=== PATIENT | female | born 1995 | race African-American/Black ===

== ENCOUNTER 2016-09-22 16:23 | Emergency (ER) | payer OTHER ==
[2016-09-22 16:55] VITALS: BP 130/76; PULSE 81; TEMP 98; BMI 22.8
--- NOTE | 2016-09-22 18:32 | PDOC ---
History of Present Illness - General Chief Complaint: Injury Stated Complaint: FALL/LT EYE INJURY Time Seen by Provider: 09/22/16 17:21 History Source: Patient Exam Limitations: No Limitations - History of Present Illness Initial Comments: 09/22/16 18:30 Chief complaint: Fall Patient 21-year-old female with no significant medical problems who states that she slipped, falling injuring her left ribs and slid and hit the left side of her face. No difficulty with vision, no LOC, no nausea or vomiting. GENERAL/CONSTITUTIONAL: No fever, weakness. dizziness HEAD, EYES, EARS, NOSE AND THROAT: No change in vision. + Eyelid swelling, No ear pain or discharge. No sore throat. CARDIOVASCULAR: No chest pain RESPIRATORY: No shortness of breath or cough GASTROINTESTINAL: No pain, nausea, vomiting, diarrhea or constipation GENITOURINARY: No dysuria MUSCULOSKELETAL: No neck or back pain, + rib pain SKIN: No rash NEUROLOGIC: No headache, vertigo, loss of consciousness, or loss of sensation. GENERAL: The patient is awake, alert, and fully oriented, in no acute distress. HEAD: Swelling to the left upper eyelid, no deformity or gross tenderness, otherwise Normal with no signs of trauma. EYES: Pupils equal, round and reactive to light, sclera anicteric, conjunctiva clear. EOMs intact ENT: pharynx: no erythema, no exudate, uvula midline NECK: supple CHEST: clear, left sided rib tenderness, no crepitus or ecchymosis, rr ABD: soft, nontender Back: No tenderness or signs of trauma EXTREMITIES: Normal range of motion, no edema. NEUROLOGICAL: Normal speech, normal gait. Cranial nerves II through XII grossly intact SKIN: Warm, Dry Past History - Past Medical History Allergies/Adverse Reactions: Allergies Allergy/AdvReac Type Severity Reaction Status Date / Time No Known Allergies Allergy Verified 09/22/16 16:56 Home Medications: Ambulatory Orders NK [No Known Home Medication] 04/05/15 Anemia: Yes Asthma: No Cancer: No Cardiac Disorders: No Diabetes: No HTN: No Suicide Attempt (Hx): No Seizures: No Thyroid Disease: No - Psycho/Social/Smoking Cessation Hx Anxiety: No Suicidal Ideation: No Smoking Status: No Smoking History: Never smoked Have you smoked in the past 12 months: No Number of Cigarettes Smoked Daily: 0 Information on smoking cessation initiated: No Hx Alcohol Use: No Drug/Substance Use Hx: No Substance Use Type: None Hx Substance Use Treatment: No *Physical Exam - Vital Signs Last Vital Signs Temp Pulse Resp BP Pulse Ox 98 F 81 18 130/76 100 09/22/16 16:52 09/22/16 16:52 09/22/16 16:52 09/22/16 16:52 09/22/16 16:52 ED Treatment Course - RADIOLOGY Radiology Studies Ordered: Category Date Time Status CHEST - PA [RAD] Stat Radiology 09/22/16 18:00 Ordered RIBS-LEFT SIDE [RAD] Stat Radiology 09/22/16 18:00 Ordered Medical Decision Making - Medical Decision Making 09/22/16 Patient who states she fell injuring her left ribs and the right side of her face with swelling to the left eyelid and tenderness to the orbit area, no signs of entrapment. Patient will get x-rays of the ribs and CT of the orbits be reevaluated. X-ray show no pneumothorax or displaced rib fractures, preliminary read CT shows no acute findings, no fracture *DC/Admit/Observation/Transfer Diagnosis at time of Disposition: Rib injury Facial contusion Qualifiers: Encounter type: initial encounter Qualified Code(s): S00.83XA - Contusion of other part of head, initial encounter - Discharge Dispostion Disposition: HOME Condition at time of disposition: Stable Admit: No - Referrals Referrals: Lilibeth Fiore MD [Primary Care Provider] - - Patient Instructions Printed Discharge Instructions: Contusion, DI for Rib Contusion, DI for Closed Head Injury Additional Instructions: Return to the nearest ER if worsening headache, nausea, vomiting, unsteady or worsening symptoms or shortness of breath Apply ice for 20 minutes every 2 hours for the next 2 days to the areas that hurt You can take Tylenol every 4 hours or Motrin 600 mg every 6 hours for headache, pain to bruises and ribs Follow-up with your doctor in one to 2 days
== END 2016-09-22 20:20 | disposition home or self-care (01) ==
LOC: JERFT 16:23
DX: S00.12XA Contusion of left eyelid and periocular area, initial encounter (principal); S05.12XA Contusion of eyeball and orbital tissues, left eye, initial encounter; S29.8XXA Other specified injuries of thorax, initial encounter; W01.0XXA Fall on same level from slipping, tripping and stumbling without subsequent striking against object, initial encounter; Y93.89 Activity, other specified; Y92.89 Other specified places as the place of occurrence of the external cause
CPT/HCPCS: 70480-TC; 71010-TC; 71101-TC; 84703; 99281-25

== ENCOUNTER 2016-11-22 14:17 | Emergency (ER) | payer OTHER ==
[2016-11-22 14:37] VITALS: BP 130/80; PULSE 100; TEMP 98; BMI 22.8
--- NOTE | 2016-11-22 15:52 | PDOC ---
History of Present Illness - General Chief Complaint: Sore Throat Stated Complaint: SORE THROAT, NAUSEA Time Seen by Provider: 11/22/16 15:36 History Source: Patient Exam Limitations: No Limitations - History of Present Illness Initial Comments: 11/22/16 15:39 My chief complaint: Sore throat History of present illness: [id number] female with h/o anemia who reports that she started to have a sore throat for days ago with nasal congestion, and fever and dry cough. Patient reports that those symptoms have somewhat subsided however she continues to have a sore throat. Patient has been afebrile today. Patient denies any nausea vomiting or diarrhea. Patient denies any difficulty swallowing or breathing. He sent denies any sick contacts or recent travel. Patient denies any chance of being and had negative test last week and has not been sexually active. 11/22/16 16:07 11/22/16 16:37 11/22/16 16:39 11/22/16 18:04 Timing/Duration: intermittent Severity: mild Associated Symptoms: reports: other (sore throat ) Past History - Past Medical History Allergies/Adverse Reactions: Allergies Allergy/AdvReac Type Severity Reaction Status Date / Time No Known Allergies Allergy Verified 11/22/16 14:37 Home Medications: Ambulatory Orders Azithromycin [Zithromax 250mg Tablets -] 250 mg PO UTDICT #6 tab 11/22/16 Anemia: Yes Asthma: No Cancer: No Cardiac Disorders: No Diabetes: No HTN: No Suicide Attempt (Hx): No Seizures: No Thyroid Disease: No - Psycho/Social/Smoking Cessation Hx Anxiety: No Suicidal Ideation: No Smoking Status: No Smoking History: Never smoked Have you smoked in the past 12 months: No Number of Cigarettes Smoked Daily: 0 Information on smoking cessation initiated: No Hx Alcohol Use: No Drug/Substance Use Hx: No Substance Use Type: None Hx Substance Use Treatment: No Review of Systems - Review of Systems Able to Perform ROS?: Yes Constitutional: No: Symptoms Reported HEENTM: Yes: Throat Pain Respiratory: No: Symptoms reported Cardiac (ROS): No: Symptoms Reported ABD/GI: No: Symptoms Reported : No: Symptoms Reported Musculoskeletal: No: Symptoms Reported Integumentary: No: Symptoms Reported Neurological: No: Symptoms reported *Physical Exam - Vital Signs Last Vital Signs Temp Pulse Resp BP Pulse Ox 98.0 F 100 H 18 130/80 100 11/22/16 14:35 11/22/16 14:35 11/22/16 14:35 11/22/16 14:35 11/22/16 14:35 - Physical Exam Comments: 11/22/16 16:40 General Appearance: Yes: Appropriately Dressed HEENT: positive: TMs Normal, Pharyngeal Erythema, Tonsillar Exudate, Tonsillar Erythema (with no uvular deviation ) Neck: positive: Lymphadenopathy (R), Lymphadenopathy (L) Respiratory/Chest: positive: Lungs Clear, Normal Breath Sounds. negative: Chest Tender, Respiratory Distress Cardiovascular: positive: Regular Rhythm, Regular Rate, S1, S2 Integumentary: positive: Normal Color Neurologic: positive: Alert, Normal Response, Responsive Medical Decision Making - Medical Decision Making 11/22/16 16:38 [id number] female with no significant medical history who reports that she started to have a sore throat for days ago with nasal congestion, and fever and dry cough. Patient reports that those symptoms have somewhat subsided however she continues to have a sore throat. Patient has been afebrile today. Patient denies any nausea vomiting or diarrhea. Patient denies any difficulty swallowing or breathing. He sent denies any sick contacts or recent travel. Patient denies any chance of being and had negative test last week and has not been sexually active. Rule out strep throat Tonsillitis with exudate Plan: Decadron 10 mg by mouth now Throat C&S rapid negative monoscreen will treat for strep tonsillitis based on clinical symptoms azithromycin 250 mg 2 tabs today than 1 tab daily X 4 days 11/22/16 16:40 11/22/16 18:01 11/22/16 18:01 11/22/16 18:02 *DC/Admit/Observation/Transfer Diagnosis at time of Disposition: Tonsillitis with exudate - Discharge Dispostion Disposition: HOME Condition at time of disposition: Stable - Prescriptions Prescriptions: Azithromycin [Zithromax 250mg Tablets -] 250 mg PO UTDICT #6 tab - Referrals Referrals: Lilibeth Fiore MD [Primary Care Provider] - - Patient Instructions Additional Instructions: Drink a lot of fluids and rest Follow-up with your primary care provider within the next few days Take ibuprofen as needed as directed by proof sorter for pain Return to emergency room if any difficulty swallowing or breathing Patient voiced understanding of discharge instructions and all questions were answered
[2016-11-22] MEDS ORDERED: DEXAMETHASONE LIQUID 0.5 MG/5 ML 240 ML BULK BOTTLE PO ONE (16:35)
[2016-11-22] MEDS ORDERED: DEXAMETHASONE SOD PHOSPHATE 10 MG/1 ML VIAL ONE (16:39)
== END 2016-11-22 18:16 | disposition home or self-care (01) ==
LOC: SUPCPDRO 14:17 → JERFT 14:17
DX: J03.90 Acute tonsillitis, unspecified (principal)
CPT/HCPCS: 36415; 86308; 87070; 87430; 99281-25

== ENCOUNTER 2017-03-27 16:54 | Emergency (ER) | payer OTHER ==
[2017-03-27 17:05] VITALS: BP 146/86; PULSE 102; TEMP 98.1; BMI 18.6
--- NOTE | 2017-03-27 18:47 | PDOC ---
History of Present Illness - General Chief Complaint: Substance Abuse Stated Complaint: ANXIETY Time Seen by Provider: 03/27/17 17:52 History Source: Patient Exam Limitations: No Limitations - History of Present Illness Initial Comments: 03/27/17 18:01 21-year-old female presents the ED for complaints of anxiety and feeling very uneasy. Patient states as per EMS patient had ingested a cookie that contained marijuana about an hour prior to arrival and then symptoms began. Upon my arrival patient was stating the cookie was a regular cold and did not contain marijuana. Mother was also present at my arrival and asked mother to step away. Patient then states unsure if cookie containing marijuana. Patient has no other complaints at this time including headache, dizziness, chest pain, shortness of breath, nausea, bowel pain, irregular menses, fever, or history of psychiatric disorder. Timing/Duration: 1-3 hours Severity: moderate Associated Symptoms: reports: other (anxiety). denies: nausea/vomiting Past History - Past Medical History Allergies/Adverse Reactions: Allergies Allergy/AdvReac Type Severity Reaction Status Date / Time No Known Allergies Allergy Verified 03/27/17 16:55 Home Medications: Ambulatory Orders NK [No Known Home Medication] 03/27/17 Anemia: Yes Asthma: No Cancer: No Cardiac Disorders: No Diabetes: No HTN: No Suicide Attempt (Hx): No Seizures: No Thyroid Disease: No - Psycho/Social/Smoking Cessation Hx Anxiety: No Suicidal Ideation: No Smoking Status: No Smoking History: Never smoked Have you smoked in the past 12 months: No Number of Cigarettes Smoked Daily: 0 Hx Alcohol Use: Yes Drug/Substance Use Hx: Yes Substance Use Type: Alcohol, Marijuana Hx Substance Use Treatment: No Patient Lives Alone: No Lives with/in: parents Review of Systems - Review of Systems Able to Perform ROS?: Yes Constitutional: No: Symptoms Reported HEENTM: No: Symptoms Reported Respiratory: No: Symptoms reported Cardiac (ROS): No: Symptoms Reported ABD/GI: No: Symptoms Reported : No: Symptoms Reported Musculoskeletal: No: Symptoms Reported Integumentary: No: Symptoms Reported Neurological: No: Symptoms reported, Dizziness Psychiatric: Yes: Anxiety Endocrine: No: Symptoms Reported Hematologic/Lymphatic: No: Symptoms Reported *Physical Exam - Vital Signs Last Vital Signs Temp Pulse Resp BP Pulse Ox 98.1 F 102 H 20 146/86 100 03/27/17 17:01 03/27/17 17:01 03/27/17 17:01 03/27/17 17:01 03/27/17 17:01 - Physical Exam General Appearance: Yes: Nourished, Appropriately Dressed. No: Apparent Distress HEENT: positive: KATHY, TMs Normal, Pharynx Normal. negative: Pale Conjunctivae Neck: positive: Normal Thyroid, Supple Respiratory/Chest: positive: Lungs Clear, Normal Breath Sounds. negative: Respiratory Distress, Accessory Muscle Use Cardiovascular: positive: Regular Rhythm, Tachycardia (100 on exam). negative: Murmur Gastrointestinal/Abdominal: positive: Soft. negative: Tenderness Extremity: positive: Normal Capillary Refill. negative: Pedal Edema Integumentary: positive: Normal Color, Warm, Moist Neurologic: positive: Motor Strength 5/5 (ambulatory). negative: Normal Mood/ Affect (anxious and guarding with questions) Medical Decision Making - Medical Decision Making 03/27/17 18:52 Patient here for evaluation of anxiety and feeling uneasy after ingesting "a cookie. Patient denied initial marijuana use in front of mother but admitted to EMS and partially to myself and the nurse after mother had left. Patient ordered for urinalysis urine drug toxicology, [facility] and given a pitcher of water. 03/27/17 19:45 Laboratory Tests 03/27/17 03/27/17 18:39 18:55 Urine Protein 2+ H Urine Nitrite Positive Ur Leukocyte Esterase Trace H Urine WBC 6 Opiates Screen Negative Methadone Screen Negative Barbiturate Screen Negative Phencyclidine Screen Negative Ur Amphetamines Screen Negative MDMA (Ecstasy) Screen Negative Benzodiazepines Screen Negative Cocaine Screen Negative U Marijuana (THC) Screen Positive Urine culture to be obtained secondary to positive urinary tract infection. Patient will be ordered for Macrobid and discharged home. *DC/Admit/Observation/Transfer Diagnosis at time of Disposition: Cannabis abuse, Urinary tract infection - Discharge Dispostion Disposition: HOME Condition at time of disposition: Good - Referrals Referrals: Mike Velasquez [Primary Care Provider] - - Patient Instructions Printed Discharge Instructions: DI for Urinary Tract Infection (UTI) Additional Instructions: Please eat small frequent meals and drink plenty of fluids for the next 3 days. please take antibiotics as prescribed for urinary tract infection. Please be aware of what your eating
--- NOTE | 2017-03-27 19:09 | PDOC ---
*Physical Exam - Vital Signs Last Vital Signs Temp Pulse Resp BP Pulse Ox 98.1 F 102 H 20 146/86 100 03/27/17 17:01 03/27/17 17:01 03/27/17 17:01 03/27/17 17:01 03/27/17 17:01 Medical Decision Making - Medical Decision Making 03/27/17 19:04 Patient seen and evaluated with the nurse practitioner. I agree with the overall evaluation, assessment, and management with the following summary of visit: healthy 21y/o F with nausea and restlessness after eating a cookie seemingly containing marijuana. No other known ingestions. no cardiopulmonary complaints. VSS, HR 102. no clinical toxidrome unknown ingestion, feels restless. no significant toxidrome, ? marijuana ingestion. agree with plan as outlined, including utox monitor/reasses, dispo accordingly
[2017-03-27 19:32] LABS: URINE APPEARANCE SLCLOUDY; URINE BILIRUBIN NEGATIVE (NEGATIVE); URINE BLOOD NEGATIVE (NEGATIVE); URINE COLOR YELLOW; URINE GLUCOSE (UA) NEGATIVE (NEGATIVE); URINE KETONE NEGATIVE (NEGATIVE); URINE NITRITE POSITIVE (NEGATIVE); URINE UROBILINOGEN NEGATIVE E.U./dl (0.2-1.0)
[2017-03-27 19:39] LABS: URINE MARIJUANA THC POSITIVE ng/ml (CUTOFF=50)
[2017-03-27 19:39] LABS: URINE LEUK ESTERASE TRACE (NEGATIVE); URINE PROTEIN 2+ (NEGATIVE)
[2017-03-27 19:41] LABS: URINE BACTERIA MANY /hpf (NONE SEEN); URINE MUCUS MANY; URINE RBC 4 /hpf (0-3); URINE WBC 6 /hpf (3-5)
== END 2017-03-27 20:31 | disposition home or self-care (01) ==
LOC: JER 16:54 → SUPCPDRO 16:54 → JER 20:31
DX: N39.0 Urinary tract infection, site not specified (principal); F12.129 Cannabis abuse with intoxication, unspecified
CPT/HCPCS: 80307; 81003; 81015; 84703; 87086; 87186; 99282-25

== ENCOUNTER 2017-05-22 00:17 | Emergency (ER) | payer OTHER ==
[2017-05-22 00:42] VITALS: BP 123/82; PULSE 83; TEMP 98.3; BMI 23.3
[2017-05-22 01:10] LABS: URINE APPEARANCE SLCLOUDY; URINE BILIRUBIN NEGATIVE (NEGATIVE); URINE BLOOD NEGATIVE (NEGATIVE); URINE COLOR YELLOW; URINE GLUCOSE (UA) NEGATIVE (NEGATIVE); URINE KETONE TRACE (NEGATIVE); URINE LEUK ESTERASE TRACE (NEGATIVE); URINE NITRITE POSITIVE (NEGATIVE); URINE PROTEIN NEGATIVE (NEGATIVE); URINE UROBILINOGEN NEGATIVE mg/dL (0.2-1.0)
[2017-05-22 01:14] LABS: URINE BACTERIA MANY /hpf (NONE SEEN); URINE HYALINE CAST 4 /lpf; URINE MUCUS MANY; URINE WBC 4 /hpf (3-5)
[2017-05-22] MEDS ORDERED: KETOROLAC TROMETHAMINE 30 MG/1 ML VIAL IM ONE (01:26)
[2017-05-22] MEDS ORDERED: KETOROLAC TROMETHAMINE 30 MG/1 ML VIAL ONE (01:36)
--- NOTE | 2017-05-22 01:45 | PDOC ---
History of Present Illness - General Chief Complaint: Pain, Acute Stated Complaint: PAIN,LT SIDE Time Seen by Provider: 05/22/17 00:50 History Source: Patient Exam Limitations: No Limitations - History of Present Illness Initial Comments: 05/22/17 01:40 21yo Female patient w/ PmHx: Anemia, presents to ED c/o chest pain. Patient states symptoms began 30 mins prior to arrival. Patient reports 7/10 chest pain. 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 Denies OTC medications use. LNMP: May 13. Patient denies any other complaints at this time. Denies control use or family history. Presenting Symptoms: Chest Pain Timing/Duration: denies: constant, getting worse, changing over time, intermittent, resolved prior to arrival, gone now, other Severity/Quality: reports: mild. denies: moderate, severe, aching, burning, dull, ingestion, pressure, sharp, stabbing, tearing, tightness, other Location: denies: substernal, central, epigastric, shoulder, back, abdomen, other Chest Pain Radiation: denies: no radiation, jaw, arms, neck, shoulders, back, sternal notch, epigastric, other Activities at Onset: denies: none, exertion, emotional upset, rest, sleep, no specific activity, eating, working, sexual intercourse, other Prior Chest Pain/Cardiac Workup: denies: No prior chest pain, No prior cardiac workup, Non-cardiac, Angina, Cardiac Cath, Cardiolye Scan, Echocardiography, Heart Attack, Pulmonary Embolism, Stress Test, Thallium Scan, Other Modifying Factors: worse with: antacids, breathing, coughing, defecating, eating , exercise, lying down, morphine, movement, nitroglycerin, oxygen, palpation, rest, other Nitro Today/Relief: No: no nitro taken today, 0.4 mg x 1, 0.4 mg x 2, 0.4 mg x 3 , 0.4 mg x 4, provided by EMS, provided by ED, provided at home, no relief, mild relief, complete relief Past History - Travel Traveled outside of the country in the last 30 days: No Close contact w/someone who was outside of country & ill: No - Past Medical History Allergies/Adverse Reactions: Allergies Allergy/AdvReac Type Severity Reaction Status Date / Time No Known Allergies Allergy Verified 03/27/17 16:55 Home Medications: Ambulatory Orders Cyclobenzaprine HCl [Flexeril -] 10 mg PO TID PRN #21 tablet 05/22/17 Ferrous Sulfate [Feosol] 325 mg PO HS 05/22/17 Ibuprofen [Motrin -] 600 mg PO Q6H PRN #30 tablet 05/22/17 Anemia: Yes (transfusion 04/06) Asthma: No Cancer: No Cardiac Disorders: No Diabetes: No HTN: No Suicide Attempt (Hx): No Seizures: No Thyroid Disease: No - Psycho/Social/Smoking Cessation Hx Anxiety: No Suicidal Ideation: No Smoking Status: No Smoking History: Never smoked Have you smoked in the past 12 months: No Number of Cigarettes Smoked Daily: 0 Hx Alcohol Use: Yes Drug/Substance Use Hx: Yes Substance Use Type: Alcohol, Marijuana Hx Substance Use Treatment: No Cardiac Specific PMH - Complaint Specific PMHX Abdominal Aortic Aneurysm: No Angina: No Cardiac Arrhythmia: No Cardiac Stent: No GERD: No Myocardial Infarction: No Pacemaker: No Pulmonary Embolus: No Valvular Heart Disease: No Peripheral Vascular Disease: No Review of Systems - Review of Systems Able to Perform ROS?: Yes Is the patient limited Slovenian proficient: No Constitutional: No: Chills, Fever Respiratory: No: Cough, Orthopnea, Shortness of Breath, Stridor, Wheezing, Productive cough Cardiac (ROS): Yes: Chest Pain. No: Irregular Heart Rate, Lightheadedness, Palpitations, Syncope, Chest Tightness ABD/GI: No: Blood Streaked Bowels, Constipated, Diarrhea, Nausea, Poor Appetite , Poor Fluid Intake, Vomiting, Indigestion, Abdominal cramping : No: Burning, Dysuria, Discharge, Hematuria Musculoskeletal: No: Back Pain, Muscle Weakness, Neck Pain Integumentary: No: Bruising, Dryness, Erythema, Sweating Neurological: No: Headache All Other Systems: Reviewed and Negative *Physical Exam - Vital Signs Last Vital Signs Temp Pulse Resp BP Pulse Ox 98.3 F 83 16 123/82 98 05/22/17 00:41 05/22/17 00:41 05/22/17 00:41 05/22/17 00:41 05/22/17 00:41 - Physical Exam General Appearance: Yes: Nourished, Appropriately Dressed. No: Apparent Distress, Mild Distress, Moderate Distress, Severe Distress HEENT: positive: EOMI, KATHY, Normal ENT Inspection, Normal Voice, Symmetrical, TMs Normal, Pharynx Normal. negative: Pharyngeal Erythema, Tonsillar Exudate, Tonsillar Erythema, Nasal Congestion, Rhinorrhea, Sinus Tenderness Neck: positive: Trachea midline, Normal Thyroid, Supple. negative: Rigid, Decreased range of motion, Stridor, Lymphadenopathy (R), Lymphadenopathy (L), Rigidity, Tender lateral, Tender midline Respiratory/Chest: positive: Lungs Clear, Normal Breath Sounds. negative: Chest Tender, Respiratory Distress, Accessory Muscle Use, Labored Respiration, Rapid RR, Decreased Breath Sounds, Rhonchi, Stridor, Wheezing Cardiovascular: positive: Regular Rhythm, Regular Rate Gastrointestinal/Abdominal: positive: Normal Bowel Sounds, Soft. negative: Distended, Guarding, Rebound, Tenderness Musculoskeletal: positive: Normal Inspection, Other (Chest Tenderness reproducible on examination.). negative: CVA Tenderness, Decreased Range of Motion, Vertebral Tenderness Extremity: positive: Normal Capillary Refill, Normal Inspection, Normal Range of Motion. 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 dust laborer II-XII NML intact, Fully Oriented, Alert, Normal Mood/ Affect, Normal Response, Motor Strength 5/ ED Treatment Course - ADDITIONAL ORDERS Additional order review: Laboratory Results 05/22/17 00:42 Urine Color Yellow Urine Appearance Slcloudy Urine pH 6.0 Urine Protein Negative Urine Glucose (UA) Negative Urine Ketones Trace H Urine Blood Negative Urine Nitrite Positive Urine Bilirubin Negative Urine Urobilinogen Negative Ur Leukocyte Esterase Trace Urine RBC None Urine WBC 4 Ur Epithelial Cells Rare Urine Bacteria Many Hyaline Casts 4 Urine Mucus Many Urine HCG, Qual Negative - RADIOLOGY Radiology Studies Ordered: Category Date Time Status CHEST PA & LAT [RAD] Stat Radiology 05/22/17 01:26 Taken - Medications Given in the ED: ED Medications Discontinued Medications Generic Name Dose Route Start Last Admin Trade Name Freq PRN Reason Stop Dose Admin Ketorolac Tromethamine 30 mg 05/22/17 01:26 05/22/17 01:40 Toradol Injection - IM 05/22/17 01:27 30 mg ONCE ONE Administration *DC/Admit/Observation/Transfer Diagnosis at time of Disposition: Musculoskeletal chest pain - Discharge Dispostion Disposition: HOME Condition at time of disposition: Stable Admit: No - Prescriptions Prescriptions: Cyclobenzaprine HCl [Flexeril -] 10 mg PO TID PRN #21 tablet PRN Reason: Pain Ibuprofen [Motrin -] 600 mg PO Q6H PRN #30 tablet PRN Reason: Mild Pain - Referrals Referrals: Mike Velasquez [Primary Care Provider] - - Patient Instructions Printed Discharge Instructions: DI for Musculoskeletal Pain Additional Instructions: Follow up with your primary care provider this week for further evaluation. Take medications as prescribed. Try warm compresses and rest. Drink plenty fluids (water). Return if symptoms worsen or any concerns for further evaluation. Print Language: SAMI
--- NOTE | 2017-05-23 13:57 | EKG ---
Test Reason : Blood Pressure : / mmHG Vent. Rate : 063 BPM Atrial Rate : 063 BPM P-R Int : 144 ms QRS Dur : 084 ms QT Int : 370 ms P-R-T Axes : -08 040 037 degrees QTc Int : 378 ms NORMAL SINUS RHYTHM PROBABLE EARLY REPOLARIZATION NO PREVIOUS ECGS AVAILABLE REPEAT EKG IF CLINICALLY INDICATED Confirmed by JAMES PINO MD ([id number]) on 05/23/2017 1:57:26 PM Referred By: Confirmed By:JAMES PINO MD
== END 2017-05-22 03:05 | disposition home or self-care (01) ==
LOC: JER 00:17
PROC: 3E0233Z Introduction of Anti-inflammatory into Muscle, Percutaneous Approach (ICD-10-PCS; principal; 2017-05-22)
DX: R07.89 Other chest pain (principal); D64.9 Anemia, unspecified
CPT/HCPCS: 71020-TC; 81003; 81015; 84703; 87086; 87186; 93005; 93010; 96372; 99282-25

== ENCOUNTER 2019-05-05 11:32 | Emergency (ER) | payer SELFPAY ==
[2019-05-05 11:45] VITALS: BMI 23.3
[2019-05-05] MEDS ORDERED: SODIUM CHLORIDE 1,000 ML IV STA (12:14)
[2019-05-05] MEDS ORDERED: METOCLOPRAMIDE HCL INJECTION 10 MG/2 ML VIAL IVPUSH ONE (12:14)
[2019-05-05] MEDS ORDERED: PYRIDOXINE HCL 100 MG/1 ML VIAL IM ONE (12:15)
--- NOTE | 2019-05-05 12:20 | PDOC ---
Attending Attestation - Resident Resident Name: Rodríguez Christopher - ED Attending Attestation I have performed the following: I have examined & evaluated the patient, The case was reviewed & discussed with the resident, I agree w/resident's findings & plan, Exceptions are as noted - HPI HPI: 23 yo F currently approximately 7-8 WGA by LMP presents with nausea and vomiting. She had a history of hyperemesis with a prior . Emesis is NBNB. Currently vomiting clear fluid. Denies fever, chills, diarrhea, abd pain, dysuria. She states she plans to terminate the on Thursday. - Physicial Exam PE: GENERAL: Awake, alert, and fully oriented, in no acute distress HEAD: No signs of trauma EYES: PERRLA, EOMI, sclera anicteric, conjunctiva clear ENT: Auricles normal inspection, hearing grossly normal, nares patent, oropharynx clear without exudates. Dry mucosa NECK: Normal ROM, supple, no lymphadenopathy, JVD, or masses LUNGS: Breath sounds equal, clear to auscultation bilaterally. No wheezes, and no crackles HEART: Regular rate and rhythm, normal S1 and S2, no murmurs, rubs or gallops ABDOMEN: Soft, mild suprapubic tenderness, normoactive bowel sounds. No guarding, no rebound. No masses EXTREMITIES: Normal range of motion, no edema. No clubbing or cyanosis. No cords, erythema, or tenderness NEUROLOGICAL: Cranial nerves II through XII grossly intact. Normal speech, normal gait. Motor and sensation intact SKIN: Warm, dry, normal turgor, no rashes or lesions noted. - Medical Decision Making Pt with suprapubic tenderness, currently in first trimester. Will send labs, urine. Will give IVF and antiemetics. Will obtain ultrasound, as she has not had one and will need to r/o ectopic.
[2019-05-05] MEDS ORDERED: METOCLOPRAMIDE HCL INJECTION 10 MG/2 ML VIAL ONE (12:26)
[2019-05-05] MEDS ORDERED: DEXTROSE 5%-LACTATED RINGERS 1,000 ML IV SCH (12:30)
[2019-05-05 12:55] LABS: EPI CELLS 9.7 /HPF (0-5/HPF); HYALINE CASTS 11 /lpf (0-8); URINE APPEARANCE CLOUDY; URINE BACTERIA >9000 /hpf (NEGATIVE); URINE BILIRUBIN NEGATIVE (NEGATIVE); URINE COLOR YELLOW; URINE GLUCOSE (UA) NEGATIVE (NEGATIVE); URINE KETONE 3+ (NEGATIVE); URINE LEUK ESTERASE 2+ (NEGATIVE); URINE NITRITE POSITIVE (NEGATIVE); URINE PROTEIN TRACE (NEGATIVE); URINE RBC 1 /hpf (0-4); URINE WBC 10 /hpf (0-5)
[2019-05-05 12:58] LABS: BASO % 0.6 % (0-2.0); EOS % 0.9 % (0-4.5); HEMOGLOBIN 11.9 GM/dL (10.7-15.3); MCH 25.9 pg (25.7-33.7); MCHC 32.9 g/dl (32.0-36.0); MEAN CELL VOLUME 78.8 fl (80-96); MEAN PLT VOLUME 8.5 fl (7.5-11.1); MONO % 4.9 % (3.8-10.2); NEUT % 73.6 % (42.8-82.8); PLATELET COUNT 274 K/MM3 (134-434); RBC 4.57 M/mm3 (3.60-5.2); RDW 18.8 % (11.6-15.6); WHITE BLOOD COUNT 6.9 K/mm3 (4.0-10.0)
--- NOTE | 2019-05-05 13:03 | PDOC ---
History of Present Illness - General Chief Complaint: Nausea/Vomiting Stated Complaint: 8WKS/ VOMITING Time Seen by Provider: 05/05/19 12:05 - History of Present Illness Initial Comments: 05/05/19 12:23 23f currently 8 weeks with appointment to terminate the next week (was waiting for insurance to kick in) presents to the ED for 1 week on daily vomiting 3 times a day. Can't hold anything down even though she's hungry. Complains of lower abdominal pain that she attributes to retching. Took Motrin yesterday with no relief. No previous workup. Had similar symptoms while with her first child. Denies fever, chills, chest pain, discharge (bleeding or other).. dysuria, diarrhea or constipation Past History - Past Medical History Allergies/Adverse Reactions: Allergies Allergy/AdvReac Type Severity Reaction Status Date / Time No Known Allergies Allergy Verified 05/05/19 11:42 Home Medications: Ambulatory Orders Ferrous Sulfate [Feosol] 325 mg PO DAILY 05/22/17 Cephalexin [Keflex] 500 mg PO BID 7 Days #14 capsule 05/05/19 Ondansetron HCl [Zofran] 4 mg PO BID #20 tablet 05/05/19 Anemia: Yes (transfusion 04/06) Asthma: No Cancer: No Cardiac Disorders: No COPD: No Diabetes: No HTN: No Seizures: No Thyroid Disease: No - Reproductive History Is Patient Now?: Yes (8 wks) (#): 2 Para: 1 Spontaneous : 0 - Suicide/Smoking/Psychosocial Hx Smoking Status: No Smoking History: Never smoked Have you smoked in the past 12 months: No Number of Cigarettes Smoked Daily: 0 Information on smoking cessation initiated: No Hx Alcohol Use: No Drug/Substance Use Hx: No Substance Use Type: Alcohol, Marijuana Hx Substance Use Treatment: No Abd/GI Specific PMHX - Complaint Specific PMHX GERD: No Review of Systems - Review of Systems Able to Perform ROS?: Yes Is the patient limited Colombian proficient: No Constitutional: No: Symptoms Reported HEENTM: No: Symptoms Reported Respiratory: No: Symptoms reported Cardiac (ROS): No: Symptoms Reported ABD/GI: Yes: See HPI : No: Symptoms Reported Musculoskeletal: No: Symptoms Reported Integumentary: No: Symptoms Reported All Other Systems: Reviewed and Negative *Physical Exam - Vital Signs Last Vital Signs Temp Pulse Resp BP Pulse Ox 99.3 F 96 H 17 119/85 100 05/05/19 11:42 05/05/19 11:42 05/05/19 11:42 05/05/19 11:42 05/05/19 11:42 - Physical Exam General Appearance: Yes: Nourished, Appropriately Dressed. No: Apparent Distress HEENT: positive: EOMI, KATHY, Normal ENT Inspection Respiratory/Chest: positive: Lungs Clear, Normal Breath Sounds. negative: Chest Tender, Respiratory Distress Cardiovascular: positive: Regular Rhythm, S1, S2, Tachycardia Gastrointestinal/Abdominal: positive: Normal Bowel Sounds, Flat, Soft. negative : Tender Musculoskeletal: positive: Normal Inspection. negative: CVA Tenderness Extremity: positive: Normal Capillary Refill, Normal Inspection, Normal Range of Motion Integumentary: positive: Normal Color, Dry, Warm Neurologic: positive: Fully Oriented, Alert, Normal Mood/Affect, Normal Response ED Treatment Course - LABORATORY CBC & Chemistry Diagram: 05/05/19 12:40 05/05/19 12:40 - RADIOLOGY Radiology Studies Ordered: Category Date Time Status <14WKS US [US] Stat Ultrasound 05/05/19 12:14 Ordered Medical Decision Making - Medical Decision Making 05/05/19 13:55 23f 8 weeks preg presents to the ed for nausea/vomiting and abdominal pain for the past week. Will r/o ectopic after betaHCG is back with TVUS. UTI on UA. Will treat with keflex after Nausea resolved. Will give pyridoxine and reglan to tx nausea and reassess. 05/05/19 15:30 PAtient go keflex. tolerating PO. Ok to dc with follow up. Writing rx for keflex and zofran. *DC/Admit/Observation/Transfer Diagnosis at time of Disposition: UTI (urinary tract infection) - Discharge Dispostion Disposition: HOME Condition at time of disposition: Improved Decision to Admit order: No - Prescriptions Prescriptions: Cephalexin [Keflex] 500 mg PO BID 7 Days #14 capsule Ondansetron HCl [Zofran] 4 mg PO BID #20 tablet - Referrals - Patient Instructions Printed Discharge Instructions: DI for Urinary Tract Infection (UTI) Additional Instructions: Come back to the emergency department for any new, worsening or concerning symptoms. Follow up with your OBGYN on Thursday at [place] as they found a possible small subchorionic bleed on ultrasound. - Post Discharge Activity
[2019-05-05 13:19] LABS: BILIRUBIN,TOTAL 0.3 mg/dL (0.2-1); CALCIUM 9.5 mg/dL (8.5-10.1); CREATININE 0.5 mg/dL (0.55-1.3); POTASSIUM 3.7 mmol/L (3.5-5.1); TOT PROT 7.8 g/dl (6.4-8.2)
[2019-05-05] MEDS ORDERED: CEPHALEXIN MONOHYDRATE 500 MG CAPSULE (UD) PO ONE (14:18)
[2019-05-05] MEDS ORDERED: CEPHALEXIN MONOHYDRATE 500 MG CAPSULE (UD) ONE (15:00)
[2019-05-05 15:49] VITALS: BP 106/77; PULSE 82; TEMP 98.3
== END 2019-05-05 15:49 | disposition home or self-care (01) ==
LOC: JER 11:32
PROC: 3E033GC Introduction of Other Therapeutic Substance into Peripheral Vein, Percutaneous Approach (ICD-10-PCS; principal; 2019-05-05)
PROC: 3E023GC Introduction of Other Therapeutic Substance into Muscle, Percutaneous Approach (ICD-10-PCS; 2019-05-05)
DX: O26.891 Other specified pregnancy related conditions, first trimester (principal); Z3A.08 8 weeks gestation of pregnancy; N39.0 Urinary tract infection, site not specified
CPT/HCPCS: 36415; 76801-TC; 80053; 81003; 84702; 85025; 87086; 87186; 99282-25

== ENCOUNTER 2019-05-07 15:49 | Emergency (ER) | payer OTHER | END 2019-05-07 16:51 | disposition home or self-care (01) | LOC: JERFT 15:49 ==

== ENCOUNTER 2019-06-20 17:01 | Emergency (ER) | payer OTHER ==
[2019-06-20] MEDS ORDERED: ACETAMINOPHEN 325 MG TABLET (FP) PO ONE (17:06)
--- NOTE | 2019-06-20 17:06 | PDOC ---
Rapid Medical Evaluation Time Seen by Provider: 06/20/19 17:04 Medical Evaluation: Allergies Allergy/AdvReac Type Severity Reaction Status Date / Time No Known Allergies Allergy Verified 05/07/19 16:01 06/20/19 17:04 CC: Vaginal bleeding with positive home test. LMP- 05/27/19 PE: deferred Orders: PVB w/u Patient to proceed to ED for evaluation. Discharge Disposition - Diagnosis Vaginal bleeding - Referrals - Patient Instructions - Post Discharge Activity
[2019-06-20 17:09] VITALS: BP 139/87; TEMP 99.2; BMI 21.9
[2019-06-20 17:42] LABS: BASO % 0.6 % (0-2.0); EOS % 2.8 % (0-4.5); HEMATOCRIT 34.9 % (32.4-45.2); HEMOGLOBIN 11.3 GM/dL (10.7-15.3); LYMPH % 33.3 % (8-40); MCH 26.6 pg (25.7-33.7); MCHC 32.4 g/dl (32.0-36.0); MEAN PLT VOLUME 8.5 fl (7.5-11.1); NEUT % 59.3 % (42.8-82.8); PLATELET COUNT 257 K/MM3 (134-434); RBC 4.26 M/mm3 (3.60-5.2); RDW 17.2 % (11.6-15.6); WHITE BLOOD COUNT 6.5 K/mm3 (4.0-10.0)
[2019-06-20] MEDS ORDERED: ACETAMINOPHEN 325 MG TABLET (FP) ONE (18:09)
[2019-06-20 18:11] LABS: CALCIUM 8.9 mg/dL (8.5-10.1); CREATININE 0.6 mg/dL (0.55-1.3); POTASSIUM 3.8 mmol/L (3.5-5.1)
[2019-06-20 18:40] LABS: EPI CELLS 2.1 /HPF (0-5/HPF); HYALINE CASTS 1 /lpf (0-8); URINE APPEARANCE CLEAR; URINE BACTERIA 221.5 /hpf (NEGATIVE); URINE BILIRUBIN NEGATIVE (NEGATIVE); URINE COLOR YELLOW; URINE GLUCOSE (UA) NEGATIVE (NEGATIVE); URINE KETONE NEGATIVE (NEGATIVE); URINE LEUK ESTERASE NEGATIVE (NEGATIVE); URINE NITRITE NEGATIVE (NEGATIVE); URINE PROTEIN NEGATIVE (NEGATIVE); URINE RBC 8 /hpf (0-4); URINE UROBILINOGEN 0.2 mg/dL (0.2-1.0); URINE WBC 1 /hpf (0-5)
--- NOTE | 2019-06-20 18:45 | PDOC ---
History of Present Illness - General Chief Complaint: Vaginal Bleeding Stated Complaint: BLEEDING Time Seen by Provider: 06/20/19 17:04 - History of Present Illness Initial Comments: 06/20/19 18:44 23 y/o F no significant pmhx presenting with 1 day of vaginal bleeding and cramping and left sided cramping abdominal pain. she recently had an 8-9 week terminated on 05/13. She noticed about a tablespoon worth of bleeding after a bath accompanied by cramping abdominal pain which lasted a few seconds. She denies any complications as a result of her 05/13 procedure and has been doing well since then. Was recently diagnosed with trichomoniasis but has not yet begun treatment due to insurance issues. She denies any fevers, chills, hematuria, dysuria, flank pain, previous hx of ectopic . Past History - Past Medical History Allergies/Adverse Reactions: Allergies Allergy/AdvReac Type Severity Reaction Status Date / Time No Known Allergies Allergy Verified 06/20/19 17:05 Home Medications: Ambulatory Orders Ferrous Sulfate [Feosol] 325 mg PO DAILY 05/22/17 Cephalexin [Keflex] 500 mg PO BID 7 Days #14 capsule 05/05/19 Ondansetron HCl [Zofran] 4 mg PO BID #20 tablet 05/05/19 Ranitidine HCl [Zantac] 150 mg PO BID #20 tablet 05/07/19 Anemia: Yes (transfusion 04/06) Asthma: No Cancer: No Cardiac Disorders: No COPD: No Diabetes: No HTN: No Seizures: No Thyroid Disease: No - Reproductive History (#): 2 Para: 1 Spontaneous : 0 - Psycho Social/Smoking Cessation Hx Smoking Status: No Smoking History: Never smoked Have you smoked in the past 12 months: No Number of Cigarettes Smoked Daily: 0 Information on smoking cessation initiated: No Hx Alcohol Use: No Drug/Substance Use Hx: No Substance Use Type: Alcohol, Marijuana Hx Substance Use Treatment: No *Physical Exam - Vital Signs Last Vital Signs Temp Pulse Resp BP Pulse Ox 99.2 F 87 16 139/87 100 06/20/19 17:05 06/20/19 17:05 06/20/19 17:05 06/20/19 17:05 06/20/19 17:05 ED Treatment Course - LABORATORY CBC & Chemistry Diagram: 06/20/19 17:28 06/20/19 17:28 - ADDITIONAL ORDERS Additional order review: Laboratory Results 06/20/19 06/20/19 06/20/19 17:28 17:28 17:17 Sodium 140 Potassium 3.8 Chloride 105 Carbon Dioxide 29 Anion Gap 5 L BUN 7.0 Creatinine 0.6 Est GFR (CKD-EPI)AfAm 146.83 Est GFR (CKD-EPI)NonAf 126.68 Random Glucose 87 Calcium 8.9 Beta HCG, Quant 9.5 Cancelled Urine Color Yellow Urine Appearance Clear Urine pH 7.0 Ur Specific Todd 1.008 L Urine Protein Negative Urine Glucose (UA) Negative Urine Ketones Negative Urine Blood 2+ H Urine Nitrite Negative Urine Bilirubin Negative Urine Urobilinogen 0.2 Ur Leukocyte Esterase Negative Urine WBC (Auto) 1 Urine RBC (Auto) 8 Urine Casts (Auto) 1 U Epithel Cells (Auto) 2.1 Urine Bacteria (Auto) 221.5 Urine HCG, Qual 06/20/19 17:17 Sodium Potassium Chloride Carbon Dioxide Anion Gap BUN Creatinine Est GFR (CKD-EPI)AfAm Est GFR (CKD-EPI)NonAf Random Glucose Calcium Beta HCG, Quant Urine Color Urine Appearance Urine pH Ur Specific Todd Urine Protein Urine Glucose (UA) Urine Ketones Urine Blood Urine Nitrite Urine Bilirubin Urine Urobilinogen Ur Leukocyte Esterase Urine WBC (Auto) Urine RBC (Auto) Urine Casts (Auto) U Epithel Cells (Auto) Urine Bacteria (Auto) Urine HCG, Qual Negative 06/20/19 17:28 RBC 4.26 MCV 82.0 MCHC 32.4 RDW 17.2 H MPV 8.5 Neutrophils % 59.3 Lymphocytes % 33.3 D Monocytes % 4.0 Eosinophils % 2.8 D Basophils % 0.6 - Medications Given in the ED: ED Medications Discontinued Medications Generic Name Dose Route Start Last Admin Trade Name Freq PRN Reason Stop Dose Admin Acetaminophen 975 mg 06/20/19 17:06 06/20/19 18:22 Tylenol - PO 06/20/19 17:07 975 mg ONCE ONE Administration Discharge - Discharge Information Problems reviewed: Yes Clinical Impression/Diagnosis: Vaginal bleeding Condition: Stable Disposition: HOME - Admission No - Follow up/Referral Referrals: Jenny Patiño MD [Primary Care Provider] - - Patient Discharge Instructions Patient Printed Discharge Instructions: DI for Vaginal Bleeding Additional Instructions: return to the ER if any of your presenting symptoms worsen you have been given a copy of your exams 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
[2019-06-20 18:47] LABS: PROTHROMBIN TIME (PATIENT) 19.1 SEC (9.7-13.0)
--- NOTE | 2019-06-20 18:55 | PDOC ---
Attending Attestation - Resident Resident Name: Abram Singh - ED Attending Attestation I have performed the following: I have examined & evaluated the patient, The case was reviewed & discussed with the resident, I agree w/resident's findings & plan, Exceptions are as noted - HPI HPI: 06/20/19 18:55 23 y/o F no significant pmhx presenting with 1 day of vaginal bleeding and cramping Status post D&C in end april - Physicial Exam PE: 06/20/19 18:55 Vitals: Triage Vital signs reviewed General Appearance: no acute distress, well nourished well developed, Head: Atraumatic, Eyes: Pupils equal reactive round, extraocular movement intact Neck: Supple;No Nucal rigidity Chest Wall: Nontender Cardiac: Regular rate and rhythym, no murmurs, no rubs, no gallops, Lungs: Clear to auscultation bilateral, good air movement bilaterally, Abdomen: Soft, non distended, normal bowel sounds, non tender to palpation Extremities: Full range of motion to all extremities, no cyanosis, clubbing, or edema Skin: Warm and dry, no rashes or lesions, no rash, no petechiae Psych: normal mood, normal affect - Medical Decision Making 06/20/19 18:57 Well-appearing no apparent distress beta hCG 9.5 no abdominal pain on examination patient will follow up with her [employer]AN[employer] INTERN in 1-2 days for repeat labs repeat ultrasound Findings, the need for follow-up and strict return instructions discussed patient.
[2019-06-20 19:07] LABS: INR 1.61 (0.83-1.09)
[2019-06-20 20:23] VITALS: PULSE 86
== END 2019-06-20 20:26 | disposition home or self-care (01) ==
LOC: JER 17:01
DX: N93.8 Other specified abnormal uterine and vaginal bleeding (principal); Z98.890 Other specified postprocedural states; D64.9 Anemia, unspecified
CPT/HCPCS: 36415; 76817-TC; 80048; 81003; 84702; 84703; 85025; 85610; 86850; 86900; 86901; 87086; 87186; 99282-25

== ENCOUNTER 2019-08-24 10:34 | Emergency (ER) | payer OTHER ==
[2019-08-24 10:42] VITALS: BMI 23.3
[2019-08-24] MEDS ORDERED: ACETAMINOPHEN 1000 MG/100 ML VIAL (NON FORMULARY) IVPB ONE (11:11)
[2019-08-24] MEDS ORDERED: METOCLOPRAMIDE HCL INJECTION 10 MG/2 ML VIAL IVPB ONE (11:11)
[2019-08-24] MEDS ORDERED: SODIUM CHLORIDE 1,000 ML IV STA (11:11)
--- NOTE | 2019-08-24 11:22 | PDOC ---
History of Present Illness - General Chief Complaint: Head/Neck problem Stated Complaint: RT. SIDE NUMBING Time Seen by Provider: 08/24/19 10:48 - History of Present Illness Initial Comments: 08/24/19 11:13 24-year-old female with a history of anemia presents the emergency department with headache, slurred speech, blurry vision, right hand tingling this morning. She states the slurred speech, headache, blurry vision, R hand tingling were present when she woke up at 815 AM. She went to bed at midnight last night. The slurred speech, blurry vision, and right hand tingling lasted from 815 AM to 830AM and resolved after tylenol when she was dropping her son off at school. At this time, she states she only has a headache. She describes the headache as frontal, dull and states it was present last night, and came on gradually. Pt presented to the emergency department 2 hours after the neuro symptoms resolved because she was waiting for her friend to pick her up from home. The patient states she has had multiple similar episodes of headache with similar neurologic symptoms in the past. She has never seen a neurologist for the symptoms. She presented today as her mom urged her to come to the emergency department to make sure she was not having a stroke. Patient also is concerned she could be . Patient was in her usual state of good health prior to the onset of the symptoms. She denies any recent dizziness, stiff neck, fevers, chills. Denies chest pain or shortness of breath. Denies abdominal pain, nausea, vomiting, diarrhea. She denies urinary symptoms. Denies vaginal bleeding or discharge. NIH Stroke Scale - Last Known Well Date/Time & Onset Date Last Known Well: 08/24/19 Time Last Known Well: 00:00 - Initial Evaluation Level of consciousness: Alert Ask patient the month and their age: Answers both correctly Ask patient to open & close eyes; make fist and let go: Obeys both correctly Best gaze (horizontal eye movement): Normal Visual field testing: No visual field loss Facial paresis (Show teeth/raise eyebrows/close eyes tight): Normal symmetrical movement Motor Function: Left Arm: Normal Motor Function: Right Arm: Normal (extends arm 90 (or 45) degrees for 10 seconds without drift Motor Function: Left Leg: Normal (extends leg 30 degrees for 5 seconds without drift) Motor Function: Right Leg: Normal (extends leg 30 degrees for 5 seconds without drift) Limb Ataxia: No ataxia Sensory(Use pinprick test arms,legs,trunk,face/side to side): Normal Best language (Describe picture, name items, read sentences): No Aphasia Dysarthria (read several words): Normal articulation Extinction and Inattention: No abnormality - Total Score NIH Stroke Scale Score: 0 Past History - Past Medical History Allergies/Adverse Reactions: Allergies Allergy/AdvReac Type Severity Reaction Status Date / Time No Known Allergies Allergy Verified 08/24/19 10:41 Home Medications: Ambulatory Orders NK [No Known Home Medication] 08/24/19 Anemia: Yes (transfusion 04/06) Asthma: No Cancer: No Cardiac Disorders: No COPD: No Diabetes: No HTN: No Seizures: No Thyroid Disease: No - Reproductive History (#): 2 Para: 1 Spontaneous : 0 - Psycho Social/Smoking Cessation Hx Smoking Status: No Smoking History: Never smoked Have you smoked in the past 12 months: No Number of Cigarettes Smoked Daily: 0 Information on smoking cessation initiated: No Hx Alcohol Use: No Drug/Substance Use Hx: No Substance Use Type: Alcohol, Marijuana Hx Substance Use Treatment: No Review of Systems - Review of Systems Comments:: 08/24/19 11:27 GENERAL/CONSTITUTIONAL: No fever or chills. No weakness. HEAD, EYES, EARS, NOSE AND THROAT: +Blurry vision. No ear pain or discharge. No sore throat. GASTROINTESTINAL: No nausea, vomiting, diarrhea or constipation. GENITOURINARY: No dysuria, frequency, or change in urination. CARDIOVASCULAR: No chest pain or shortness of breath. RESPIRATORY: No cough, wheezing, or hemoptysis. MUSCULOSKELETAL: No joint or muscle swelling or pain. No neck or back pain. SKIN: No rash NEUROLOGIC: +headache, slurred speech, R hand tingling. No vertigo, loss of consciousness, or change in strength. ENDOCRINE: No increased thirst. No abnormal weight change. HEMATOLOGIC/LYMPHATIC: No anemia, easy bleeding, or history of blood clots. ALLERGIC/IMMUNOLOGIC: No hives or skin allergy. *Physical Exam - Vital Signs Last Vital Signs Temp Pulse Resp BP Pulse Ox 98 F 90 19 149/98 100 08/24/19 10:38 08/24/19 10:38 08/24/19 10:38 08/24/19 10:38 08/24/19 10:38 - Physical Exam 08/24/19 11:27 GENERAL: Awake, alert, and fully oriented, in no acute distress HEAD: No signs of trauma EYES: PERRLA, EOMI, sclera anicteric, conjunctiva clear ENT: Auricles normal inspection, hearing grossly normal, nares patent, oropharynx clear without exudates. Moist mucosa NECK: Normal ROM, supple, no lymphadenopathy, JVD, or masses LUNGS: Breath sounds equal, clear to auscultation bilaterally. No wheezes, and no crackles HEART: Regular rate and rhythm, normal S1 and S2, no murmurs, rubs or gallops ABDOMEN: Soft, nontender, normoactive bowel sounds. No guarding, no rebound. No masses EXTREMITIES: Normal range of motion, no edema. No clubbing or cyanosis. No cords, erythema, or tenderness NEUROLOGICAL: Normal speech, cranial nerves intact, negative pronator drift, 5/ 5 strength in all 4 extremities, normal sensation to light touch in all 4 extremities, normal cerebellar exam, normal gait, normal reflexes and tone SKIN: Warm, Dry, normal turgor, no rashes or lesions noted. Heart Score/ECG Review #1 08/24/19 11:44 Twelve-lead EKG was performed and reviewed by me. Normal sinus rhythm, rate 82. Normal axis. No ST elevations or TWI. Sinus arrhythmia secondary to respiratory variation. ED Treatment Course - LABORATORY CBC & Chemistry Diagram: 08/24/19 11:30 08/24/19 11:30 Medical Decision Making - Medical Decision Making 08/24/19 11:28 24-year-old female with a history of anemia presents the emergency department with resolved slurred speech, blurry vision, right hand tingling and persistent headache. Vitals within normal limits. Exam within normal limits. Patient is out of the TPA window as her last known normal was midnight last night, and currently her NIHSS is 0 Most likely complex migraine considering quick resolution of symptoms, no stroke risk factors, and multiple episodes of similar symptoms in the past 10 years. We will proceed with stroke work-up in the emergency department, treat her headache, and discuss disposition with neurology consult. 08/24/19 13:10 Labs thus far unremarkable. CT scan of head is done, however not read yet. Patient states she needs to leave the emergency department immediately as her son is sick at school and they have called her 5 times to pick him up. The patient is clinically sober, free from distracting injury, appears to have intact insight and judgment and reason and in my opinion has the capacity to make decisions. The patient presents with headache and stroke symptoms. I have explained that I am concerned that this may represent a stroke; they have verbalized an understanding of my concerns. I have told the patient that while their labs were normal, they could still have a stroke or other neurologic pathology. I have discussed the need for CT read, neurology consult to get more information about potential causes of the patients symptoms. I have told the patient that if they leave and have recurrent symptoms and persistent headache, they could get much worse, could become critically ill, and could possibly become disabled or . The patient is not willing to wait for CT head results or neurology consult. She is unwilling to stay overnight for monitoring. She is refusing any further care and is leaving against medical advice. I am unable to convince the patient to stay, I have asked them to return as soon as possible to complete their evaluation. I have answered all their questions. 08/25/19 10:00 CT head reviewed and is negative on final read. Discharge - Discharge Information Problems reviewed: Yes Clinical Impression/Diagnosis: Headache, Slurred speech, Numbness and tingling in right hand Condition: Unchanged/Unknown Disposition: AGAINST MEDICAL ADVICE - Follow up/Referral Referrals: Liliana Marie [Primary Care Provider] - - Patient Discharge Instructions Patient Printed Discharge Instructions: DI for Headache Additional Instructions: You presented to the emergency department today with a headache, and resolved slurred speech, tingling of the right hand and blurry vision. You did not complete your evaluation for the symptoms today and thus we are signing you out AGAINST MEDICAL ADVICE. As discussed, signing out AGAINST MEDICAL ADVICE puts you at risk for worsening symptoms, disability or even . Return to the emergency department to complete your evaluation as soon as possible. We have also included a referral for neurologist - Post Discharge Activity
[2019-08-24] MEDS ORDERED: METOCLOPRAMIDE HCL INJECTION 10 MG/2 ML VIAL ONE (11:34)
[2019-08-24] MEDS ORDERED: ACETAMINOPHEN INJECTION 100 ML IVPB ONE (11:34)
[2019-08-24 11:36] LABS: EPI CELLS 5.8 /HPF (0-5/HPF); HYALINE CASTS 0 /lpf (0-8); URINE APPEARANCE CLEAR; URINE BACTERIA 2866.1 /hpf (NEGATIVE); URINE BILIRUBIN NEGATIVE (NEGATIVE); URINE COLOR YELLOW; URINE GLUCOSE (UA) NEGATIVE (NEGATIVE); URINE KETONE NEGATIVE (NEGATIVE); URINE LEUK ESTERASE NEGATIVE (NEGATIVE); URINE NITRITE POSITIVE (NEGATIVE); URINE PROTEIN NEGATIVE (NEGATIVE); URINE RBC 1 /hpf (0-4); URINE UROBILINOGEN 0.2 mg/dL (0.2-1.0); URINE WBC 1 /hpf (0-5)
[2019-08-24 11:42] LABS: BASO % 0.7 % (0-2.0); EOS % 1.5 % (0-4.5); HEMATOCRIT 32.2 % (32.4-45.2); HEMOGLOBIN 10.3 GM/dL (10.7-15.3); LYMPH % 30.7 % (8-40); MCH 25.4 pg (25.7-33.7); MEAN CELL VOLUME 79.3 fl (80-96); MEAN PLT VOLUME 8.5 fl (7.5-11.1); NEUT % 62.1 % (42.8-82.8); PLATELET COUNT 343 K/MM3 (134-434); RBC 4.06 M/mm3 (3.60-5.2); RDW 15.8 % (11.6-15.6)
[2019-08-24 11:53] LABS: INR 1.54 (0.83-1.09); PROTHROMBIN TIME (PATIENT) 18.3 SEC (9.7-13.0)
[2019-08-24 11:55] LABS: ACTIVATED PTT 33.4 SECONDS (25.2-36.5)
[2019-08-24 12:33] LABS: ALBUMIN 3.8 g/dl (3.4-5.0); ALK PHOS 66 U/L (45-117); ANION GAP 7 MMOL/L (8-16); BILIRUBIN,TOTAL < 0.1 mg/dL (0.2-1); BLOOD UREA NITROGEN 6.8 mg/dL (7-18); CALCIUM 8.9 mg/dL (8.5-10.1); CHLORIDE 107 mmol/L (98-107); CO2 27 mmol/L (21-32); CREATININE 0.5 mg/dL (0.55-1.3); GLUCOSE,RANDOM 86 mg/dL (74-106); HDL CHOLESTEROL 60 mg/dL (40-60); LDL CHOLESTEROL (ONLY SJRH) 63 mg/dL (5-100); SGOT/AST 14 U/L (15-37); SGPT/ALT 14 U/L (13-61); SODIUM 141 mmol/L (136-145); TOT PROT 7.3 g/dl (6.4-8.2); TRIGLYCERIDES 28 mg/dL (0-150)
[2019-08-24 13:11] VITALS: BP 118/81; PULSE 73; TEMP 97.7
--- NOTE | 2019-08-25 10:42 | EKG ---
Test Reason : Blood Pressure : / mmHG Vent. Rate : 082 BPM Atrial Rate : 082 BPM P-R Int : 148 ms QRS Dur : 084 ms QT Int : 350 ms P-R-T Axes : 067 044 033 degrees QTc Int : 408 ms NORMAL SINUS RHYTHM WITH SINUS ARRHYTHMIA NORMAL ECG WHEN COMPARED WITH ECG OF 22-MAY-2017 02:08, T WAVE AMPLITUDE HAS DECREASED IN ANTERIOR LEADS Confirmed by DILAN VALDEZ, DEBRA ([id number]) on 08/25/2019 10:41:38 AM Referred By: Confirmed By:DEBRA KONG MD
== END 2019-08-24 13:17 | disposition left against medical advice (07) ==
LOC: JER 10:34
PROC: 3E033NZ Introduction of Analgesics, Hypnotics, Sedatives into Peripheral Vein, Percutaneous Approach (ICD-10-PCS; principal; 2019-08-24)
PROC: 3E033GC Introduction of Other Therapeutic Substance into Peripheral Vein, Percutaneous Approach (ICD-10-PCS; 2019-08-24)
DX: R51 Headache (principal); R20.2 Paresthesia of skin; R20.0 Anesthesia of skin; R47.81 Slurred speech
CPT/HCPCS: 36415; 70450-TC; 80053; 81003; 82465; 82550; 83718; 83721; 84478; 84484; 84703; 85025; 85610; 85730; 87086; 87186; 93005; 93010; 99283-25; J0131; J7030

== ENCOUNTER 2019-11-12 16:56 | Emergency (ER) | payer OTHER ==
[2019-11-12 17:03] VITALS: TEMP 97.2; BMI 23.3
[2019-11-12] MEDS ORDERED: ACETAMINOPHEN 1000 MG/100 ML VIAL (NON FORMULARY) IVPB ONE (17:48)
[2019-11-12] MEDS ORDERED: ONDANSETRON 4 MG/2 ML VIAL IVPUSH ONE (17:54)
[2019-11-12] MEDS ORDERED: SODIUM CHLORIDE 1,000 ML IV STA (17:54)
--- NOTE | 2019-11-12 18:06 | PDOC ---
History of Present Illness - General Chief Complaint: Nausea/Vomiting Stated Complaint: VOMITTING Time Seen by Provider: 11/12/19 17:04 History Source: Patient Exam Limitations: No Limitations - History of Present Illness Travel History: No Initial Comments: 11/12/19 17:55 HISTORY OF PRESENT ILLNESS: 24-year-old otherwise healthy woman presents emergency department for evaluation of left pelvic pain progressively worsening over the past 2 weeks and nonbilious nonbloody vomiting over the past 5 days. Patient reports she had a pain similar to this during her previous . Patient reports she is having unprotected vaginal intercourse with her significant other and that her last period was on 10/22 but flow was less than usual. She denies any fevers, chills, diarrhea, vaginal bleeding, vaginal discharge, dysuria. No recent travel or sick contacts. PAST MEDICAL HISTORY: Denies past medical history SURGICAL HISTORY: Denies ALLERGIES: No known drug allergies REVIEW OF SYSTEMS General/Constitutional: Denies fever or chills. Denies weakness, weight change. HEENT: Denies change in vision. Denies ear pain or discharge. Denies sore throat. Cardiovascular: Denies chest pain or shortness of breath. Respiratory: Denies cough, wheezing, or hemoptysis. Gastrointestinal: See HPI Genitourinary: See HPI Musculoskeletal: Denies joint or muscle swelling or pain. Denies neck or back pain. Skin and breasts: Denies rash or easy bruising. Neurologic: Denies headache, vertigo, loss of consciousness, or loss of sensation. Psychiatric: Denies depression or anxiety. Endocrine: Denies increased thirst. Denies abnormal weight change. Hematologic/Lymphatic: Denies anemia, easy bleeding, or history of blood clots. Allergic/Immunologic: Denies hives or skin allergy. Denies latex allergy. PHYSICAL EXAM General Appearance: Well-appearing, appropriately dressed. No apparent distress , no intoxication. Respiratory/Chest: Lungs CTAB. No shortness of breath, chest tenderness, respiratory distress, accessory muscle use. No crackles, rales, rhonchi, stridor , wheezing, dullness Cardiovascular: RRR. S1, S2. No JVD, murmur, bradycardia, tachycardia. Vascular Pulses: Dorsalis-Pedis (R): 2+, Dorsalis-Pedis (L): 2+ Gastrointestinal/Abdominal: Normal bowel sounds. Abdomen soft, non-distended. No organomegaly, pulsatile mass, hernia, hepatomegaly, splenomegaly. Exquisitely tender left pelvic region. Guarding present. Past History - Past Medical History Allergies/Adverse Reactions: Allergies Allergy/AdvReac Type Severity Reaction Status Date / Time No Known Allergies Allergy Verified 08/24/19 10:41 Anemia: Yes (transfusion 04/06) Asthma: No Cancer: No Cardiac Disorders: No COPD: No Diabetes: No HTN: No Seizures: No Thyroid Disease: No - Reproductive History (#): 2 Para: 1 Spontaneous : 0 - Psycho Social/Smoking Cessation Hx Smoking Status: No Smoking History: Never smoked Have you smoked in the past 12 months: No Number of Cigarettes Smoked Daily: 0 Hx Alcohol Use: No Drug/Substance Use Hx: No Substance Use Type: Alcohol, Marijuana Hx Substance Use Treatment: No Abd/GI Specific PMHX - Complaint Specific PMHX GERD: No *Physical Exam - Vital Signs Last Vital Signs Temp Pulse Resp BP Pulse Ox 97.2 F L 82 16 126/78 100 11/12/19 17:00 11/12/19 17:00 11/12/19 17:00 11/12/19 17:00 11/12/19 17:00 - Physical Exam Comments:: 11/12/19 18:07 RN Mikal present as motion picture narrator. Female Pelvic Exam: positive: normal external exam, cervical os closed, discharge (Malodorous yellow discharge), adnexal tenderness (Left) ED Treatment Course - LABORATORY CBC & Chemistry Diagram: 11/12/19 18:00 11/12/19 17:46 - RADIOLOGY Radiology Studies Ordered: Category Date Time Status TRANSVAGINAL ULTRASOUND US [US] Stat Ultrasound 11/12/19 17:48 Ordered Medical Decision Making - Medical Decision Making 11/12/19 17:58 A/P: 24-year-old woman with left pelvic pain progressively worsening over the past 2 weeks Differential diagnosis includes but is not limited to-ectopic , ovarian torsion, PID, cystitis, hernia, diverticulitis Labs including beta hCG Urine with culture and gonorrhea chlamydia testing Transvaginal ultrasound Normal saline 1 L IV bolus Zofran 4 mg IV push Tylenol 1 g IV Transfer to main ER for continued evaluation. Signout has been given to SUSANNA Wang for continued evaluation of the patient. Discharge - Discharge Information Problems reviewed: Yes Clinical Impression/Diagnosis: Ovarian cyst Qualifiers: Laterality: left Qualified Code(s): N83.202 - Unspecified ovarian cyst, left side Condition: Stable Disposition: HOME - Follow up/Referral Referrals: ON STAFF,NOT [Primary Care Provider] - - Patient Discharge Instructions Patient Printed Discharge Instructions: DI for Ovarian Cyst Additional Instructions: Thank you for choosing [facility]. It was a pleasure taking care of you. Please take iron for your anemia You were noted to have uterine fibroids and cysts on both of your ovaries. The cyst on your left ovary is larger. Please follow-up with your [employer] doctor regarding the cysts Return to the Emergency Department if your symptoms worsen or persist or have other concerning symptoms. - Post Discharge Activity
--- NOTE | 2019-11-12 18:15 | PDOC ---
*Physical Exam - Vital Signs Last Vital Signs Temp Pulse Resp BP Pulse Ox 97.2 F L 82 16 126/78 100 11/12/19 17:00 11/12/19 17:00 11/12/19 17:00 11/12/19 17:00 11/12/19 17:00 - Physical Exam General Appearance: No: Apparent Distress Respiratory/Chest: positive: Lungs Clear, Normal Breath Sounds. negative: Respiratory Distress Cardiovascular: positive: Regular Rhythm, Regular Rate, S1, S2. negative: Murmur Female Pelvic Exam: positive: adnexal tenderness (mild along L side) Gastrointestinal/Abdominal: positive: Soft. negative: Tender, Distended, Guarding Neurologic: positive: Alert ED Treatment Course - LABORATORY CBC & Chemistry Diagram: 11/12/19 18:00 11/12/19 17:46 Medical Decision Making - Medical Decision Making Patient signed out to me MANE Luke Patient currently appears comfortable Pending results of labs and to confirm Will also get pelvic US 11/12/19 18:17 Labs reviewed - patient is anemia Patient states she is aware but is not taking iron Patient advised to take her iron pills Rest of labs unremarkable Pelvic ultrasound shows left ovarian cyst measuring 4.7 x 4 x 4.3 cm and also shows a right ovarian cyst measuring 2.1 x 1.6 x 1.6 cm; patient also noted to have uterine fibroids; no current evidence of torsion on ultrasound Advised f/u with [facility] regarding ovarian cysts; given copy of report 11/12/19 20:16 Discharge - Discharge Information Problems reviewed: Yes Clinical Impression/Diagnosis: Ovarian cyst Qualifiers: Laterality: left Qualified Code(s): N83.202 - Unspecified ovarian cyst, left side Condition: Stable Disposition: HOME - Admission No - Follow up/Referral Referrals: ON STAFF,NOT [Primary Care Provider] - - Patient Discharge Instructions Patient Printed Discharge Instructions: DI for Ovarian Cyst Additional Instructions: Thank you for choosing [facility]. It was a pleasure taking care of you. Please take iron for your anemia You were noted to have uterine fibroids and cysts on both of your ovaries. The cyst on your left ovary is larger. Please follow-up with your [facility] doctor regarding the cysts Return to the Emergency Department if your symptoms worsen or persist or have other concerning symptoms. - Post Discharge Activity
[2019-11-12] MEDS ORDERED: ONDANSETRON 4 MG/2 ML VIAL ONE (18:21)
[2019-11-12] MEDS ORDERED: ACETAMINOPHEN INJECTION 100 ML IVPB ONE (18:21)
[2019-11-12 18:36] LABS: BASO % 0.8 % (0-2.0); EOS % 2.3 % (0-4.5); HEMATOCRIT 28.9 % (32.4-45.2); HEMOGLOBIN 9.1 GM/dL (10.7-15.3); LYMPH % 26.2 % (8-40); MCH 22.5 pg (25.7-33.7); MCHC 31.4 g/dl (32.0-36.0); MEAN CELL VOLUME 71.5 fl (80-96); MEAN PLT VOLUME 8.6 fl (7.5-11.1); MONO % 5.7 % (3.8-10.2); PLATELET COUNT 259 K/MM3 (134-434); RBC 4.05 M/mm3 (3.60-5.2); WHITE BLOOD COUNT 6.5 K/mm3 (4.0-10.0)
[2019-11-12 18:40] LABS: EPI CELLS 6.1 /HPF (0-5/HPF); HYALINE CASTS 1 /lpf (0-8); PH,URINE 8.5 (5.0-8.0); URINE APPEARANCE CLEAR; URINE BILIRUBIN NEGATIVE (NEGATIVE); URINE COLOR YELLOW; URINE GLUCOSE (UA) NEGATIVE (NEGATIVE); URINE KETONE NEGATIVE (NEGATIVE); URINE LEUK ESTERASE TRACE (NEGATIVE); URINE NITRITE NEGATIVE (NEGATIVE); URINE PROTEIN NEGATIVE (NEGATIVE); URINE RBC 0 /hpf (0-4); URINE WBC 3 /hpf (0-5)
[2019-11-12 19:10] LABS: ALBUMIN 3.9 g/dl (3.4-5.0); ALK PHOS 73 U/L (45-117); ANION GAP 5 MMOL/L (8-16); BILIRUBIN,TOTAL 0.2 mg/dL (0.2-1); BLOOD UREA NITROGEN 7.6 mg/dL (7-18); CHLORIDE 110 mmol/L (98-107); CO2 27 mmol/L (21-32); CREATININE 0.6 mg/dL (0.55-1.3); GLUCOSE,RANDOM 73 mg/dL (74-106); POTASSIUM 3.8 mmol/L (3.5-5.1); SGOT/AST 11 U/L (15-37); SGPT/ALT 13 U/L (13-61); SODIUM 142 mmol/L (136-145); TOT PROT 7.5 g/dl (6.4-8.2)
[2019-11-12 21:59] VITALS: BP 134/83; PULSE 78
== END 2019-11-12 21:40 | disposition home or self-care (01) ==
LOC: JER 16:56 → JERFT 16:56 → JER 21:40
PROC: 3E033GC Introduction of Other Therapeutic Substance into Peripheral Vein, Percutaneous Approach (ICD-10-PCS; principal; 2019-11-12)
PROC: 3E033NZ Introduction of Analgesics, Hypnotics, Sedatives into Peripheral Vein, Percutaneous Approach (ICD-10-PCS; 2019-11-12)
DX: N83.202 Unspecified ovarian cyst, left side (principal); N83.201 Unspecified ovarian cyst, right side; D64.9 Anemia, unspecified
CPT/HCPCS: 36415; 76830-TC; 80053; 81003; 84702; 84703; 85025; 87070; 87086; 87205; 96374; 96375; 99285-25; J0131; J7030

== ENCOUNTER 2020-08-07 17:28 | Emergency (ER) | payer OTHER ==
[2020-08-07 17:36] VITALS: BP 152/101; PULSE 108; TEMP 98.8; BMI 24.1
[2020-08-07 18:30] LABS: BASO % 0.6 % (0-2.0); EOS % 4.7 % (0-4.5); HEMATOCRIT 39.2 % (32.4-45.2); HEMOGLOBIN 13.1 GM/dL (10.7-15.3); LYMPH % 37.6 % (8-40); MCH 30.5 pg (25.7-33.7); MCHC 33.4 g/dl (32.0-36.0); MEAN CELL VOLUME 91.6 fl (80-96); MEAN PLT VOLUME 9.1 fl (7.5-11.1); MONO % 3.4 % (3.8-10.2); NEUT % 53.7 % (42.8-82.8); PLATELET COUNT 283 K/MM3 (134-434); RBC 4.28 M/mm3 (3.60-5.2); RDW 12.9 % (11.6-15.6); WHITE BLOOD COUNT 5.5 K/mm3 (4.0-10.0)
[2020-08-07 19:10] LABS: POTASSIUM 3.9 mmol/L (3.5-5.1)
[2020-08-07 19:12] LABS: CALCIUM 8.8 mg/dL (8.5-10.1)
[2020-08-07 19:13] LABS: ALBUMIN 3.8 g/dl (3.4-5.0); BLOOD UREA NITROGEN 5.3 mg/dL (7-18)
[2020-08-07 19:16] LABS: CREATININE 0.7 mg/dL (0.55-1.3)
[2020-08-07 19:17] LABS: BILIRUBIN,TOTAL 0.2 mg/dL (0.2-1)
[2020-08-07 19:18] LABS: TOT PROT 7.7 g/dl (6.4-8.2)
== END 2020-08-07 19:48 | disposition home or self-care (01) ==
LOC: JER 17:28
DX: N93.9 Abnormal uterine and vaginal bleeding, unspecified (principal)
CPT/HCPCS: 36415; 80053; 84703; 85025; 86850; 86900; 86901; 99283-25

== ENCOUNTER 2021-11-21 18:28 | Emergency (ER) | payer OTHER ==
[2021-11-21 18:43] VITALS: BP 138/81; PULSE 83; TEMP 98; BMI 23.3
== END 2021-11-21 20:50 | disposition home or self-care (01) ==
LOC: JERFT 18:28
DX: H00.011 Hordeolum externum right upper eyelid (principal)
CPT/HCPCS: 99283-25

== ENCOUNTER 2022-02-21 15:44 | Emergency (ER) | payer OTHER ==
[2022-02-21 16:09] VITALS: BP 128/84; PULSE 90; TEMP 98; BMI 24.5
[2022-02-21] MEDS ORDERED: METHOCARBAMOL 500 MG TABLET PO ONE (16:55)
[2022-02-21] MEDS ORDERED: IBUPROFEN 600 MG TABLET (FP) PO ONE ×2 (16:55→17:00)
[2022-02-21] MEDS ORDERED: METHOCARBAMOL 500 MG TABLET ONE (17:01)
== END 2022-02-21 17:39 | disposition home or self-care (01) ==
LOC: JER 15:44 → JERFT 15:44
DX: S16.1XXA Strain of muscle, fascia and tendon at neck level, initial encounter (principal); V43.62XA Car passenger injured in collision with other type car in traffic accident, initial encounter
CPT/HCPCS: 99283-25

== ENCOUNTER 2022-09-20 13:34 | Emergency (ER) | payer OTHER ==
[2022-09-20 14:00] VITALS: BP 119/77; PULSE 107; RESP 20; TEMP 98.8; BMI 24.5
[2022-09-20 15:39] LABS: CALCIUM 9.4 mg/dL (8.5-10.1)
[2022-09-20 15:40] LABS: ALBUMIN 3.8 g/dl (3.4-5.0); BLOOD UREA NITROGEN 4.9 mg/dL (7-18)
[2022-09-20 15:43] LABS: CREATININE 0.5 mg/dL (0.55-1.3)
[2022-09-20 15:45] LABS: BILIRUBIN,TOTAL 0.3 mg/dL (0.2-1)
[2022-09-20 15:51] LABS: BASO % 1.3 % (0-2.0); EOS % 2.1 % (0-4.5); HEMATOCRIT 29.3 % (32.4-45.2); HEMOGLOBIN 8.4 GM/dL (10.7-15.3); LYMPH % 30.3 % (8-40); MCHC 28.6 g/dl (32.0-36.0); MEAN CELL VOLUME 65.8 fl (80-96); MEAN PLT VOLUME 9.4 fl (7.5-11.1); MONO % 6.5 % (3.8-10.2); NEUT % 59.8 % (42.8-82.8); PLATELET COUNT 357 10^3/uL (134-434); RBC 4.45 M/mm3 (3.60-5.2); RDW 19.6 % (11.6-15.6); WHITE BLOOD COUNT 6.2 K/mm3 (4.0-10.0)
[2022-09-20 15:53] LABS: MCH 18.8 pg (25.7-33.7)
[2022-09-20] MEDS ORDERED: SODIUM CHLORIDE 1,000 ML IV STA (16:14)
[2022-09-20] MEDS ORDERED: ACETAMINOPHEN 1000 MG/100 ML BAG IVPB ONE (16:14)
[2022-09-20] MEDS ORDERED: ACETAMINOPHEN INJECTION 100 ML IVPB ONE (16:15)
[2022-09-20 16:29] LABS: INR 1.76 (0.83-1.09); PROTHROMBIN TIME (PATIENT) 20.3 SEC (9.7-13.0)
[2022-09-20 16:31] LABS: ACTIVATED PTT 29.7 SECONDS (25.2-36.5)
[2022-09-20 16:58] LABS: ANISOCYTOSIS 1+; MACROCYTOSIS 1+; OVALOCYTE 1+
== END 2022-09-20 17:08 | disposition home or self-care (01) ==
LOC: JER 13:34
PROC: 3E033GC Introduction of Other Therapeutic Substance into Peripheral Vein, Percutaneous Approach (ICD-10-PCS; principal; 2022-09-20)
DX: R42 Dizziness and giddiness (principal); D64.9 Anemia, unspecified
CPT/HCPCS: 36415; 80053; 85025; 85610; 85730; 86850; 86900; 86901; 99284-25

== ENCOUNTER 2024-06-19 17:33 | Emergency (ER) | payer OTHER ==
[2024-06-19 17:44] VITALS: BP 137/79; PULSE 108; RESP 18; TEMP 97; BMI 28.3
[2024-06-19] MEDS ORDERED: AMOX TR/POT CLAV 875MG/125MG TABLETS (FP) ONE (19:55)
[2024-06-19] MEDS ORDERED: ACETAMINOPHEN 500 MG TABLET (FP) ONE (19:55)
[2024-06-19] MEDS ORDERED: IBUPROFEN 600 MG TABLET (FP) PO ONE (19:55)
[2024-06-19] MEDS: AMOX TR/POT CLAV 875MG/125MG TABLETS (FP) PO ONE (19:56)
[2024-06-19] MEDS: ACETAMINOPHEN 500 MG TABLET (FP) PO ONE (19:57)
[2024-06-19] MEDS: IBUPROFEN 600 MG TABLET (FP) PO ONE (19:57)
== END 2024-06-19 20:17 | disposition home or self-care (01) ==
LOC: JERFT 17:33 → JER 17:33 → JERFT 20:17
DX: K05.6 Periodontal disease, unspecified (principal)
CPT/HCPCS: 99283-25

== ENCOUNTER 2024-07-20 18:05 | Emergency (ER) | payer OTHER ==
[2024-07-20 18:17] VITALS: BP 134/86; PULSE 99; RESP 20; TEMP 99.2; BMI 28.3
[2024-07-20] MEDS ORDERED: ACETAMINOPHEN 325 MG TABLET (FP) ONE (18:33)
[2024-07-20] MEDS: ACETAMINOPHEN 325 MG TABLET (FP) PO ONE (18:44)
[2024-07-20] MEDS ORDERED: DEXAMETHASONE LIQUID 0.5 MG/5 ML PO ONE (18:46)
[2024-07-20] MEDS ORDERED: DEXAMETHASONE SOD PHOSPHATE 10 MG/1 ML VIAL ONE (18:50)
[2024-07-20] MEDS: DEXAMETHASONE SOD PHOSPHATE 10 MG/1 ML VIAL PO ONE (18:55)
== END 2024-07-20 19:49 | disposition home or self-care (01) ==
LOC: JERFT 18:05
DX: J02.0 Streptococcal pharyngitis (principal); R50.9 Fever, unspecified; Z20.822 Contact with and (suspected) exposure to COVID-19
CPT/HCPCS: 0241U-QW; 87651; 99283-25; J1100